=== PATIENT | female | born 1960 ===

== ENCOUNTER 2019-08-29 21:25 | Emergency (ER) | payer SELFPAY ==
[~2019-08-29] VITALS: Ht 152.4 cm; Wt 73.9 kg
[2019-08-29] MEDS ORDERED: PROPRANOLOL HCL20 MG PO (21:36)
[2019-08-29] MEDS ORDERED: ZOCOR40 MG PO (21:37)
[2019-08-29] MEDS ORDERED: CYMBALTA20 MG PO (21:37)
[2019-08-29] MEDS ORDERED: LISINOPRIL20 MG PO (21:37)
--- NOTE | 2019-08-30 14:53 | EKG ---
[facility] [address] [facility] [place], [place] [address] Signed Normal sinus rhythm Inferior infarct , age undetermined Abnormal ECG No previous ECGs available Confirmed by MARIANA BATRLETT DO ([id number]) on 08/30/2019 2:53:09 PM Electronically Signed By: MARIANA BARTLETT DO 08/30/19 1453 PATIENT NAME: PUNEET RIOJAS Electrocardiogram DATE OF : 58 PHYSICIAN: MARIANA BARTLETT DO REPORT #: [id number] REPORT IS CONFIDENTIAL AND NOT TO BE RELEASED WITHOUT AUTHORIZATION
== END 2019-08-30 00:03 | disposition home or self-care (01) ==
LOC: ED 21:25
DX: R07.2 Precordial pain (principal); I10 Essential (primary) hypertension; E78.00 Pure hypercholesterolemia, unspecified; Z88.8 Allergy status to other drugs, medicaments and biological substances; Z88.6 Allergy status to analgesic agent; Z79.899 Other long term (current) drug therapy
CPT/HCPCS: 71046; 80053; 83735; 84484; 85025; 93005; 93010; 96374; 99285-25; C9113